=== PATIENT | female | born 1980 | race Caucasian/White ===

== ENCOUNTER 2016-10-23 18:51 | Emergency (ER) | payer MEDICAID ==
[~2016-10-23] VITALS: Ht 154.9 cm; Wt 64.5 kg
[2016-10-23 19:10] VITALS: BP 131/83
[2016-10-23] MEDS ORDERED: LIDOCAINE 1%, 20ML ONE (19:26)
[2016-10-23] MEDS ORDERED: LIDOCAINE 1%, 20ML INFIL ONE (19:30)
== END 2016-10-23 21:08 | disposition home or self-care (01) ==
LOC: ED 21:02
DX: L03.114 Cellulitis of left upper limb (principal); Z88.8 Allergy status to other drugs, medicaments and biological substances; F17.210 Nicotine dependence, cigarettes, uncomplicated
CPT/HCPCS: 10060; 99283; J3490

== ENCOUNTER 2016-10-25 20:45 | Emergency (ER) | payer SELFPAY ==
[~2016-10-25] VITALS: Ht 154.9 cm; Wt 64.4 kg
[2016-10-25 20:49] VITALS: BP 121/81
[2016-10-25] MEDS ORDERED: HYDROcodone/APAP 5/325 TABLET PO ONE (21:30)
[2016-10-25] MEDS ORDERED: KETOROLAC 30 MG/1 ML IM ONE (21:30)
[2016-10-25] MEDS ORDERED: LIDOCAINE 1%, 10ML INFIL ONE (21:30)
[2016-10-25] MEDS ORDERED: KETOROLAC 30 MG/1 ML ONE (21:31)
[2016-10-25] MEDS ORDERED: HYDROcodone/APAP 5/325 TABLET ONE (21:31)
[2016-10-25] MEDS ORDERED: LIDOCAINE 1%, 20ML ONE (21:32)
== END 2016-10-25 22:35 | disposition home or self-care (01) ==
LOC: ED 22:20
DX: L02.412 Cutaneous abscess of left axilla (principal)
CPT/HCPCS: 96372; 99283; J1885

== ENCOUNTER 2016-10-27 21:56 | Emergency (ER) | payer SELFPAY ==
[~2016-10-27] VITALS: Ht 154.9 cm; Wt 64.8 kg
[2016-10-27 22:00] VITALS: BP 136/90
== END 2016-10-27 23:27 | disposition home or self-care (01) ==
LOC: ED 23:15
DX: L02.412 Cutaneous abscess of left axilla (principal)
CPT/HCPCS: 99281

== ENCOUNTER 2017-02-25 11:57 | Emergency (ER) | payer OTHER ==
[~2017-02-25] VITALS: Ht 154.9 cm; Wt 64.6 kg
[2017-02-25 11:58] VITALS: BP 115/77
[2017-02-25] MEDS ORDERED: LIDOCAINE 1%, 20ML ONE (12:15)
[2017-02-25] MEDS ORDERED: LIDOCAINE 1%, 20ML SQ ONE (12:30)
== END 2017-02-25 12:47 | disposition home or self-care (01) ==
LOC: ED 12:41
DX: L02.411 Cutaneous abscess of right axilla (principal)
CPT/HCPCS: 10060

== ENCOUNTER 2017-03-02 01:38 | Emergency (ER) | payer SELFPAY ==
[~2017-03-02] VITALS: Ht 154.9 cm; Wt 64.7 kg
[2017-03-02 01:40] VITALS: BP 132/90
[2017-03-02] MEDS ORDERED: LIDOCAINE 1%, 20ML ONE (02:17)
[2017-03-02] MEDS ORDERED: LIDOCAINE 1%, 20ML INFIL ONE (02:30)
== END 2017-03-02 03:18 | disposition home or self-care (01) ==
LOC: ED 02:05
DX: L02.412 Cutaneous abscess of left axilla (principal)
CPT/HCPCS: 10061

== ENCOUNTER 2017-04-07 17:22 | Emergency (ER) | payer OTHER ==
[~2017-04-07] VITALS: Ht 157.5 cm; Wt 62.5 kg
[2017-04-07 17:33] VITALS: BP 130/72
[2017-04-07] MEDS ORDERED: HYDROcodone/APAP 5/325 TABLET PO STA (18:39)
[2017-04-07] MEDS ORDERED: HYDROcodone/APAP 5/325 TABLET ONE (18:41)
[2017-04-07] MEDS ORDERED: HYDROcodone/APAP 5/325 TABLET PO ONE (19:00)
== END 2017-04-07 19:14 | disposition home or self-care (01) ==
LOC: ED 19:00
DX: S63.637A Sprain of interphalangeal joint of left little finger, initial encounter (principal); S63.635A Sprain of interphalangeal joint of left ring finger, initial encounter; X58.XXXA Exposure to other specified factors, initial encounter; Y93.89 Activity, other specified; Y92.89 Other specified places as the place of occurrence of the external cause; Y99.8 Other external cause status; Z88.1 Allergy status to other antibiotic agents
CPT/HCPCS: 29125

== ENCOUNTER 2017-12-11 23:03 | Emergency (ER) | payer SELFPAY ==
[~2017-12-11] VITALS: Ht 154.9 cm; Wt 63.9 kg
[2017-12-11 23:05] VITALS: BP 109/70
[2017-12-11] MEDS ORDERED: TRIAMCINOLONE ACETONIDE 40 MG/ML, 1ML IM STA (23:41)
== END 2017-12-12 01:05 | disposition home or self-care (01) ==
LOC: ED 23:58
DX: L40.0 Psoriasis vulgaris (principal)
CPT/HCPCS: 96372; 99283; J3301

== ENCOUNTER 2018-06-20 15:21 | Emergency (ER) | payer MEDICAID ==
[~2018-06-20] VITALS: Ht 154.9 cm; Wt 67.6 kg
[2018-06-20 15:23] VITALS: BP 141/85
[2018-06-20] MEDS ORDERED: MORPHINE SULFATE 4 MG/ML, 1ML IVPush PRN (15:30)
[2018-06-20] MEDS ORDERED: ONDANSETRON 2MG/ML, 2ML IVPush ONE (15:30)
[2018-06-20] MEDS ORDERED: SODIUM CHLORIDE FLUSH 10ML SYR IVF ONE (15:30)
--- NOTE | 2018-06-20 15:41 | NUR ---
PT ARRIVES TO ED WITH C/O OF ABD PAIN. PT EPROTS SHE HAD A MASS DIGNOSED AT [facility]. PT REPROTS SHE WAS SENT TO FOLLOW UP WITH OBGYN BUT CANNOT GET AN APPOINTMENT UNTIL THE . PT RPEORTS THE BREATHING IS CAUSING HER ABD PAIN AND DIFFICULTY BREATHING. BECK
--- NOTE | 2018-06-20 15:57 | NUR ---
AT THIS TIME WOULD LIKE TO HOLD OFF ON PIV AND IV MEDS.
[2018-06-20 16:13] LABS: ALANINE AMINOTRANSFERASE 20 U/L (12-78); ALBUMIN 3.8 g/dL (3.4-5.0); ANION GAP 9 mmol/L (5-15); CALCIUM 8.5 mg/dL (8.5-10.1); CHLORIDE 108 mmol/L (98-107); CREATININE 0.79 mg/dL (0.55-1.02)
[2018-06-20 16:17] LABS: ALKALINE PHOSPHATASE 57 U/L (45-117); BILIRUBIN,TOTAL 0.3 mg/dL (0.2-1.0); TOTAL PROTEIN 7.7 g/dL (6.4-8.2)
[2018-06-20 16:29] LABS: BASOPHILS # (AUTO) 0.03 x10^3/uL (0-0.1); BASOPHILS % (AUTO) 1 % (0-1); EOSINOPHILS # (AUTO) 0.17 x10^3/uL (0-0.4); EOSINOPHILS % (AUTO) 5 % (1-7); LYMPHOCYTES # (AUTO) 1.59 x10^3/uL (1-3.4); LYMPHOCYTES % (AUTO) 41 % (22-44); MD NO; MEAN CORPUSCULAR HEMOGLOBIN 25.3 pg (27.0-34.8); MEAN CORPUSCULAR VOLUME 76.9 fL (80-100); MEAN PLATELET VOLUME 8.4 fL (7.4-10.4); MONOCYTES # (AUTO) 0.28 x10^3/uL (0.2-0.8); MONOCYTES % (AUTO) 7 % (2-9); NEUTROPHILS # (AUTO) 1.76 x10^3/uL (1.8-6.8); NEUTROPHILS % (AUTO) 46 % (42-75); PLATELET COUNT 358 x10^3/uL (130-400); RED BLOOD COUNT 3.95 x10^6/uL (3.82-5.3); RED CELL DISTRIBUTION WIDTH 17.8 % (9.6-15.2)
[2018-06-20 16:36] LABS: MICROSCOPIC AUTO
[2018-06-20 16:39] LABS: CULTURE INDICATED? NO
--- NOTE | 2018-06-20 17:28 | NUR ---
PT BACK FROM US, MD TO BEDSIDE.
--- NOTE | 2018-06-20 17:34 | NUR ---
Patient/Caregiver given discharge instructions and they have confirmed that they understand the instructions. Patient ambulatory with steady gait.
== END 2018-06-20 17:54 | disposition home or self-care (01) ==
LOC: ED 16:42
DX: R19.07 Generalized intra-abdominal and pelvic swelling, mass and lump (principal); D50.0 Iron deficiency anemia secondary to blood loss (chronic); F17.200 Nicotine dependence, unspecified, uncomplicated
CPT/HCPCS: 36415; 76830; 80053; 81001; 84703; 85025; 86304; 99284

== ENCOUNTER 2018-06-29 14:29 | Outpatient (CLI) | payer MEDICAID ==
[2018-06-29 15:38] LABS: BASOPHILS # (AUTO) 0.04 x10^3/uL (0-0.1); BASOPHILS % (AUTO) 1 % (0-1); EOSINOPHILS # (AUTO) 0.18 x10^3/uL (0-0.4); EOSINOPHILS % (AUTO) 4 % (1-7); LYMPHOCYTES # (AUTO) 1.53 x10^3/uL (1-3.4); LYMPHOCYTES % (AUTO) 34 % (22-44); MD NO; MEAN CORPUSCULAR HEMOGLOBIN 24.6 pg (27.0-34.8); MEAN CORPUSCULAR HGB CONC 32.3 g/dL (32.4-35.8); MEAN CORPUSCULAR VOLUME 76.3 fL (80-100); MEAN PLATELET VOLUME 8.1 fL (7.4-10.4); MONOCYTES # (AUTO) 0.31 x10^3/uL (0.2-0.8); MONOCYTES % (AUTO) 7 % (2-9); NEUTROPHILS # (AUTO) 2.38 x10^3/uL (1.8-6.8); NEUTROPHILS % (AUTO) 54 % (42-75); PLATELET COUNT 350 x10^3/uL (130-400); RED BLOOD COUNT 4.19 x10^6/uL (3.82-5.3); RED CELL DISTRIBUTION WIDTH 17.8 % (9.6-15.2)
[2018-06-29] MEDS ORDERED: IBUP-1623 PO (16:07)
[2018-06-29 16:11] LABS: INTERNATIONAL NORMALIZED RATIO 1.07 (0.93-1.1); PROTHROMBIN TIME 11.3 Seconds (9.6-11.5)
[2018-06-29 19:23] LABS: ALANINE AMINOTRANSFERASE 18 U/L (12-78); ALBUMIN 3.6 g/dL (3.4-5.0); ANION GAP 7 mmol/L (5-15); CALCIUM 8.6 mg/dL (8.5-10.1); CHLORIDE 108 mmol/L (98-107); CREATININE 0.65 mg/dL (0.55-1.02)
[2018-06-29 19:25] LABS: ALKALINE PHOSPHATASE 56 U/L (45-117); BILIRUBIN,TOTAL 0.3 mg/dL (0.2-1.0); TOTAL PROTEIN 7.2 g/dL (6.4-8.2)
== END 2018-06-29 23:59 | disposition home or self-care (01) ==
LOC: STAR 14:29
PROVIDERS: ATTEND Specialist
DX: Z01.818 Encounter for other preprocedural examination (principal)
CPT/HCPCS: 36415; 70450; 71046; 80053; 82105; 83615; 85025; 85610; 85730; 93005

== ENCOUNTER 2018-07-03 07:35 | Inpatient (IN) | payer MEDICAID ==
[~2018-07-03] VITALS: Ht 156.2 cm; Wt 66.6 kg
[~2018-07-03 07:35] MED LIST: IBUP-1623 PO
[2018-07-03 08:37] LABS: HCG UR SG 1.019 (1.003-1.030)
[2018-07-03] MEDS ORDERED: LACTATED RINGERS 1,000 ML IV SCH (08:39)
[2018-07-03] MEDS ORDERED: LIDOCAINE-MPF 1%, 2ML INFIL ONE (09:00)
[2018-07-03] MEDS ORDERED: FENTANYL PF 250 MCG/5ML ONE ×2 (09:25→10:54)
[2018-07-03] MEDS ORDERED: MIDAZOLAM 1 MG/ML, 2ML ONE ×2 (09:25→12:30)
[2018-07-03] MEDS ORDERED: PROPOFOL 10 MG/ML, 20ML ONE (09:28)
[2018-07-03] MEDS ORDERED: SUCCINYLCHOLINE 20 MG/ML, 10ML ONE ×3 (09:28)
[2018-07-03] MEDS ORDERED: ROCURONIUM 10MG/ML,5ML ONE (09:28)
[2018-07-03] MEDS ORDERED: KETOROLAC 30 MG/1 ML ONE (10:09)
[2018-07-03] MEDS ORDERED: ONDANSETRON 2MG/ML, 2ML ONE (10:09)
[2018-07-03] MEDS ORDERED: DEXAMETHASONE 4 MG/ML, 1ML ONE (10:09)
[2018-07-03] MEDS ORDERED: GLYCOPYRROLATE 0.2MG/1ML, 5ML ONE (10:09)
[2018-07-03] MEDS ORDERED: NEOSTIGMINE 1 MG/ML, 10ML ONE (10:09)
[2018-07-03] MEDS ORDERED: CEFOTETAN 2 GM ONE (10:09)
[2018-07-03] MEDS ORDERED: ROPIvacaine/PF 0.2%, 20 ML ONE ×2 (10:54)
[2018-07-03] MEDS ORDERED: MEPERIDINE/PF 25MG/0.5ML IVPush PRN (11:00)
[2018-07-03] MEDS ORDERED: MORPHINE SULFATE 4 MG/ML, 1ML IVPush PRN (11:00)
[2018-07-03] MEDS ORDERED: OXYcodone 5 MG/5 ML ORAL.SOL UDC PO PRN (11:00)
[2018-07-03] MEDS ORDERED: ALBUTEROL SULFATE 2.5 MG/3 ML NPPB PRN (11:00)
[2018-07-03] MEDS ORDERED: hydrALAzine 20 MG/ML, 1ML IV PRN (11:00)
[2018-07-03] MEDS ORDERED: DIAZEPAM 5 MG/ML, 2ML IVPush PRN (11:00)
[2018-07-03] MEDS ORDERED: PROMETHAZINE 25 MG/ML, 1ML IV PRN (11:00)
[2018-07-03] MEDS ORDERED: ONDANSETRON ODT 8 MG PO PRN (11:00)
[2018-07-03] MEDS ORDERED: PROMETHAZINE 12.5 MG SUPP PR PRN (11:00)
[2018-07-03] MEDS ORDERED: ACETAMINOPHEN 325 MG TABLET PO PRN (11:00)
[2018-07-03] MEDS ORDERED: HALOPERIDOL 5 MG/ML IV PRN (11:00)
[2018-07-03] MEDS ORDERED: LABETALOL 5MG/ML, 20ML IV PRN (11:00)
[2018-07-03] MEDS ORDERED: ONDANSETRON 2MG/ML, 2ML IV PRN (11:00)
[2018-07-03] MEDS ORDERED: HYDROmorphone 2 MG/ML, 1ML IVPush PRN (11:00)
[2018-07-03] MEDS ORDERED: EPHEDRINE 50 MG/ML, 1ML IVPush PRN (11:00)
[2018-07-03] MEDS ORDERED: MIDAZOLAM 1 MG/ML, 2ML IV PRN (11:00)
[2018-07-03] MEDS ORDERED: OXYcodone 5 MG/5 ML ORAL.SOL UDC ONE ×2 (12:24→12:30)
[2018-07-03] MEDS ORDERED: FENTANYL PF 100 MCG/2ML ONE (12:24)
[2018-07-03] MEDS: FENTANYL PF 100 MCG/2ML IV PRN ×2 (12:26→13:06)
[2018-07-03] MEDS ORDERED: ONDANSETRON 2MG/ML, 2ML IVPush PRN (12:30)
[2018-07-03] MEDS: KETOROLAC 30 MG/1 ML IV SCH ×2 (14:45→22:13)
[2018-07-03] MEDS: POTASSIUM CHLORIDE 20 MEQ in D5%-0.45% NACL 1,000 ML IV SCH (17:14)
[2018-07-03 19:39] VITALS: BP 132/76
[2018-07-03 23:41] VITALS: BP 111/74
[2018-07-04 03:16] VITALS: BP 99/64
[2018-07-04] MEDS: POTASSIUM CHLORIDE 20 MEQ in D5%-0.45% NACL 1,000 ML IV SCH ×2 (03:39→14:32)
[2018-07-04 05:55] LABS: BASOPHILS % (AUTO) 0 % (0-1); EOSINOPHILS # (AUTO) 0.01 x10^3/uL (0-0.4); EOSINOPHILS % (AUTO) 0 % (1-7); LYMPHOCYTES # (AUTO) 1.15 x10^3/uL (1-3.4); LYMPHOCYTES % (AUTO) 15 % (22-44); MD NO; MEAN CORPUSCULAR HEMOGLOBIN 24.8 pg (27.0-34.8); MEAN CORPUSCULAR HGB CONC 32.5 g/dL (32.4-35.8); MEAN CORPUSCULAR VOLUME 76.3 fL (80-100); MEAN PLATELET VOLUME 8.3 fL (7.4-10.4); MONOCYTES # (AUTO) 0.63 x10^3/uL (0.2-0.8); MONOCYTES % (AUTO) 8 % (2-9); NEUTROPHILS # (AUTO) 5.68 x10^3/uL (1.8-6.8); NEUTROPHILS % (AUTO) 76 % (42-75); PLATELET COUNT 280 x10^3/uL (130-400); RED BLOOD COUNT 3.51 x10^6/uL (3.82-5.3); RED CELL DISTRIBUTION WIDTH 17.4 % (9.6-15.2)
[2018-07-04 06:11] LABS: CALCIUM 8.1 mg/dL (8.5-10.1); CHLORIDE 106 mmol/L (98-107)
[2018-07-04 06:14] LABS: ALBUMIN 3.1 g/dL (3.4-5.0); ANION GAP 5 mmol/L (5-15); CREATININE 0.63 mg/dL (0.55-1.02)
[2018-07-04] MEDS: KETOROLAC 30 MG/1 ML IV SCH ×3 (06:21→23:04)
[2018-07-04 07:27] VITALS: BP 98/66
[2018-07-04 12:32] VITALS: BP 110/67
[2018-07-04] MEDS: NICOTINE 21 MG/24 HR PATCH.TD24 TD SCH (12:52)
[2018-07-04 20:31] VITALS: BP 114/75
[2018-07-05] MEDS: POTASSIUM CHLORIDE 20 MEQ in D5%-0.45% NACL 1,000 ML IV SCH ×3 (00:18→21:09)
[2018-07-05 02:36] VITALS: BP_SYST 109; BP_SYST 113; BP_DIAS 71; BP_DIAS 74
[2018-07-05] MEDS: KETOROLAC 30 MG/1 ML IV SCH ×3 (05:48→22:01)
[2018-07-05 08:22] VITALS: BP 124/81
[2018-07-05] MEDS: NICOTINE 21 MG/24 HR PATCH.TD24 TD SCH (13:33)
[2018-07-05 14:17] VITALS: BP 124/81
[2018-07-05 19:22] VITALS: BP 119/80
[2018-07-06 00:25] VITALS: BP 110/73
[2018-07-06] MEDS: KETOROLAC 30 MG/1 ML IV SCH (06:15)
[2018-07-06] MEDS: POTASSIUM CHLORIDE 20 MEQ in D5%-0.45% NACL 1,000 ML IV SCH (07:05)
[2018-07-06 07:42] VITALS: BP 115/74
[2018-07-06] MEDS ORDERED: ONDA4TAB7 PO (08:55)
[2018-07-06] MEDS ORDERED: OXYC-306 PO (08:55)
[2018-07-06] MEDS ORDERED: FERR324T5 PO (08:56)
== END 2018-07-06 11:35 | disposition home or self-care (01) | DRG 743 ==
LOC: ORIP 07:35 → 4NOR 13:55 → DCLOUNGE 07-06 11:24
PROVIDERS: ADMIT Specialist; ATTEND Specialist
PROC: 0UT70ZZ Resection of Bilateral Fallopian Tubes, Open Approach (ICD-10-PCS; 2018-07-03)
PROC: 0UT90ZZ Resection of Uterus, Open Approach (ICD-10-PCS; principal; 2018-07-03 09:00)
DX: D25.9 Leiomyoma of uterus, unspecified (principal); D64.9 Anemia, unspecified; Z88.8 Allergy status to other drugs, medicaments and biological substances; Z87.891 Personal history of nicotine dependence; J44.9 Chronic obstructive pulmonary disease, unspecified
CPT/HCPCS: 36415; J3490; 80048; 81025; 82040; 85025; 86850; 86900; 86923; 88307; 88331; G0378; J1100; J1885; J2250; J2270; J2405; J2704; J2710; J2795; J3010; J3480; J0330; J7120

== ENCOUNTER 2019-08-13 20:56 | Emergency (ER) | payer MEDICAID ==
[~2019-08-13] VITALS: Ht 162.6 cm; Wt 66.9 kg
[~2019-08-13 20:56] MED LIST changes: +FERR324T5 PO; +ONDA4TAB7 PO; +OXYC-306 PO
[2019-08-13 21:31] VITALS: BP 127/91
[2019-08-13] MEDS ORDERED: KETOROLAC 30 MG/1 ML IM ONE (22:00)
== END 2019-08-13 22:22 | disposition home or self-care (01) ==
LOC: ED 21:30
DX: H65.02 Acute serous otitis media, left ear (principal)
CPT/HCPCS: 99283

== ENCOUNTER 2019-08-16 21:21 | Emergency (ER) | payer MEDICAID ==
[~2019-08-16] VITALS: Ht 154.9 cm; Wt 65.2 kg
[2019-08-16 21:24] VITALS: BP 129/71
[2019-08-16] MEDS ORDERED: IBUPROFEN 600 MG TABLET ONE (22:28)
[2019-08-16] MEDS ORDERED: IBUPROFEN 200 MG TABLET PO ONE (22:30)
== END 2019-08-16 22:47 | disposition home or self-care (01) ==
LOC: ED 21:44
DX: H92.02 Otalgia, left ear (principal)
CPT/HCPCS: 99282

== ENCOUNTER 2019-10-14 17:26 | Emergency (ER) | payer MEDICAID ==
[~2019-10-14] VITALS: Ht 157.5 cm; Wt 52.0 kg
[2019-10-14 17:30] VITALS: BP 128/81
[2019-10-14 18:11] LABS: MICROSCOPIC INDICATED
[2019-10-14 18:14] LABS: CULTURE INDICATED? YES
--- NOTE | 2019-10-14 18:40 | NUR ---
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
== END 2019-10-14 19:07 | disposition home or self-care (01) ==
LOC: ED 18:49
DX: N30.01 Acute cystitis with hematuria (principal)
CPT/HCPCS: 81001; 87077; 87086; 87186; 99283

== ENCOUNTER 2019-10-17 17:19 | Emergency (ER) | payer MEDICAID ==
[~2019-10-17] VITALS: Ht 154.9 cm; Wt 64.0 kg
--- NOTE | 2019-10-17 17:28 | NUR ---
THIS IS A 39 YO F BIB EMS W/ C/O LLQ AND LT SIDED ABD PAIN 03/29 THAT STARTED THIS MORNING. PT WAS SEEN 2 DAYS AGO FOR UTI, TAKING CIPRO. LAST BM TODAY. DENIES VOMITING. PT REPORTS USING HEROIN AND METH AT 10:30 THIS MORNING. 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 PT TACHYCARDIC, OTHER VS WDL. PT RESTING ON GURNEY W/ CALL LIGHT IN REACH, SIDE RAILS UPX2. AWAITING ED EVAL. DENIES FURTHER NEEDS AT THIS TIME.
--- NOTE | 2019-10-17 17:37 | NUR ---
PT AMBULATED TO THE BR W/ A STEADY GAIT.
[2019-10-17 17:52] LABS: MICROSCOPIC AUTO
--- NOTE | 2019-10-17 17:52 | NUR ---
PT CRYING OUT IN PAIN, MAGED OQUENDO NOTIFIED AND ASKED TO COME SEE PT.
[2019-10-17 17:53] LABS: CULTURE INDICATED? YES
--- NOTE | 2019-10-17 17:58 | NUR ---
MAGED OQUENDO IN ROOM.
[2019-10-17] MEDS ORDERED: KETOROLAC 30 MG/1 ML IVPush ONE (18:00)
[2019-10-17] MEDS ORDERED: KETOROLAC 30 MG/1 ML ONE (18:00)
--- NOTE | 2019-10-17 18:04 | NUR ---
PT MEDICATED PER EMAR.
[2019-10-17 18:11] LABS: BASOPHILS # (AUTO) 0.05 x10^3/uL (0-0.1); BASOPHILS % (AUTO) 1 % (0-1); EOSINOPHILS # (AUTO) 0.22 x10^3/uL (0-0.4); EOSINOPHILS % (AUTO) 3 % (1-7); LYMPHOCYTES % (AUTO) 45 % (22-44); MD NO; MEAN CORPUSCULAR HEMOGLOBIN 31.1 pg (27.0-34.8); MEAN CORPUSCULAR VOLUME 91.3 fL (80-100); MEAN PLATELET VOLUME 8.3 fL (7.4-10.4); MONOCYTES # (AUTO) 0.32 x10^3/uL (0.2-0.8); MONOCYTES % (AUTO) 5 % (2-9); NEUTROPHILS # (AUTO) 2.97 x10^3/uL (1.8-6.8); NEUTROPHILS % (AUTO) 46 % (42-75); PLATELET COUNT 332 x10^3/uL (130-400); RED BLOOD COUNT 4.64 x10^6/uL (3.82-5.3); RED CELL DISTRIBUTION WIDTH 12.4 % (9.6-15.2)
[2019-10-17 18:20] LABS: ALANINE AMINOTRANSFERASE 20 U/L (12-78); ALBUMIN 3.4 g/dL (3.4-5.0); ANION GAP 8 mmol/L (5-15); CALCIUM 9.7 mg/dL (8.5-10.1); CHLORIDE 108 mmol/L (98-107); CREATININE 1.01 mg/dL (0.55-1.02)
[2019-10-17 18:25] LABS: ALKALINE PHOSPHATASE 76 U/L (45-117); BILIRUBIN,TOTAL 0.3 mg/dL (0.2-1.0); TOTAL PROTEIN 7.2 g/dL (6.4-8.2)
--- NOTE | 2019-10-17 18:30 | NUR ---
PT RESTING MUCH MORE COMFORTABLE AFTER PAIN MEDS.
[2019-10-17] MEDS ORDERED: HYDROmorphone 1 MG/ML, 1ML INJ ONE (19:03)
--- NOTE | 2019-10-17 19:06 | NUR ---
PT MEDICATED PER EMAR. AWAITING CT.
--- NOTE | 2019-10-17 19:07 | NUR ---
TELEPHONE CALL TO CT, THAT PT HAS BEEN MEDICATED AND READY FOR SCAN.
[2019-10-17] MEDS ORDERED: HYDROmorphone 1 MG/ML, 1ML INJ IV ONE (19:30)
--- NOTE | 2019-10-17 19:48 | NUR ---
PT TO CT.
--- NOTE | 2019-10-17 20:02 | NUR ---
PT BACK FROM CT. RESTING ON [employer] W/ CALL LIGHT IN REACH. AWAITING RESULTS.
--- NOTE | 2019-10-17 20:06 | NUR ---
PT REPORTS RELIEF OF PAIN AFTER MEDS.
--- NOTE | 2019-10-17 20:53 | NUR ---
STRAIGHT CATH URINE SPECIMEN OBTAINED AND SENT TO LAB.
[2019-10-17 21:18] LABS: MICROSCOPIC INDICATED
[2019-10-17 21:19] LABS: CULTURE INDICATED? YES
[2019-10-17] MEDS ORDERED: CEFTRIAXONE PMX 1GM/50ML 50 ML IV ONE (22:00)
[2019-10-17] MEDS ORDERED: CEFTRIAXONE PMX 1GM/50ML 50 ML ONE (22:15)
[2019-10-17 22:20] VITALS: BP 126/74
--- NOTE | 2019-10-17 22:21 | NUR ---
TASK RN: CELSO INITIATED. NO BC PRIOR TO ADMIN PER ERP.
== END 2019-10-17 22:50 | disposition home or self-care (01) ==
LOC: ED 18:31
DX: N30.00 Acute cystitis without hematuria (principal); N20.0 Calculus of kidney; R10.9 Unspecified abdominal pain; M54.5 Low back pain; Z88.2 Allergy status to sulfonamides; Z88.1 Allergy status to other antibiotic agents; Z90.710 Acquired absence of both cervix and uterus
CPT/HCPCS: 36415; 74176; 80053; 81001; 84703; 85025; 87086; 96365; 96375; 99285; J0696; J1170; J1885

== ENCOUNTER 2020-02-08 10:36 | Emergency (ER) | payer MEDICAID ==
[~2020-02-08] VITALS: Ht 154.9 cm; Wt 64.7 kg
[2020-02-08 10:39] VITALS: BP 131/81
[2020-02-08] MEDS ORDERED: DEXAMETHASONE 4 MG TABLET ONE (11:10)
[2020-02-08] MEDS ORDERED: KETOROLAC 30 MG/1 ML ONE (11:10)
--- NOTE | 2020-02-08 11:16 | NUR ---
MEDS GIVEN PER ORDERS DRINKING FLUIDS EASILY
[2020-02-08] MEDS ORDERED: DEXAMETHASONE 4 MG TABLET PO ONE (12:00)
[2020-02-08] MEDS ORDERED: KETOROLAC 30 MG/1 ML IM ONE (12:00)
== END 2020-02-08 12:43 | disposition home or self-care (01) ==
LOC: ED 11:34
DX: J02.0 Streptococcal pharyngitis (principal); H92.09 Otalgia, unspecified ear; R09.81 Nasal congestion
CPT/HCPCS: 87880; 96372; 99283; J1885

== ENCOUNTER 2020-02-10 09:06 | Emergency (ER) | payer MEDICAID ==
[~2020-02-10] VITALS: Ht 157.5 cm; Wt 61.2 kg
[2020-02-10 09:19] VITALS: BP 116/74
--- NOTE | 2020-02-10 09:58 | NUR ---
MEDIC STUDENT IN TO START IV-PT REFUSES STATING "I'M NOT HAVING A STUDENT". THIS RN IN TO START IV. WITH NEEDLE INSERTION PT STATES "TAKE IT OUT, THAT'S NOT GOING TO WORK". PT INSISTS ON THIS RN REMOVING IV AND SAYS "YOU SHOULDN'T HAVE DONE THAT ARM, NOTHING WORKS ON THAT ARM". THIS RN STARTS IV ON L ARM AND PT AGAIN STATES "YOU ARE DONE, YOU ARE DONE" WITH INSERTION OF NEEDLE. FLASH OBTAINED AND PT ALLOWED IV PLACEMENT. UNABLE TO DRAW LABS AND IV INFILTRATE WITH FLUSH. PT THEN STATES "NO ONE ELSE IS POKING ME, YOU SUCK ASS, ALL OF YOU SUCK ASS". LAB AT [facility], PT ASKED IF OK FOR LAB TO DRAW. PT YELLS "NO, NOBODY IS POKING ME! 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 ERP NOTIFIED OF PT REFUSAL AND COMMENTS. ERP IN TO SPEAK WITH PT AND PT LEAVES ER.
[2020-02-10] MEDS ORDERED: KETOROLAC 30 MG/1 ML IVPush ONE (10:00)
[2020-02-10] MEDS ORDERED: SODIUM CHLORIDE 0.9% 1,000ML IVBOLUS ONE (10:00)
[2020-02-10] MEDS ORDERED: DEXAMETHASONE 4 MG/ML, 1ML IVPush ONE (10:00)
[2020-02-10] MEDS ORDERED: SODIUM CHLORIDE FLUSH 10ML SYR IVF ONE (10:00)
[2020-02-10] MEDS ORDERED: AMPICILLIN/SULBACTAM 3 GM in SODIUM CHLORIDE 0.9% 100 ML IV ONE (10:00)
== END 2020-02-10 10:12 | disposition home or self-care (01) ==
LOC: ED 09:50
DX: M54.2 Cervicalgia (principal); R22.0 Localized swelling, mass and lump, head; R51 Headache; F17.200 Nicotine dependence, unspecified, uncomplicated; Z90.710 Acquired absence of both cervix and uterus
CPT/HCPCS: 99281

== ENCOUNTER 2020-02-11 01:34 | Inpatient (IN) | payer MEDICAID ==
[~2020-02-11] VITALS: Ht 154.9 cm; Wt 66.0 kg
[2020-02-11] MEDS ORDERED: SODIUM CHLORIDE 0.9% 1,000 ML IV ONE (01:36)
--- NOTE | 2020-02-11 01:51 | NUR ---
PT. PROVIDED WITH [employer] WITH OK FROM DR. SHAFFER.
[2020-02-11] MEDS ORDERED: ONDANSETRON 2MG/ML, 2ML ONE (01:59)
[2020-02-11] MEDS ORDERED: MORPHINE SULFATE 4 MG/ML, 1ML ONE (01:59)
[2020-02-11] MEDS ORDERED: SODIUM CHLORIDE FLUSH 10ML SYR IVF ONE (02:00)
[2020-02-11] MEDS ORDERED: ONDANSETRON 2MG/ML, 2ML IVPush ONE (02:00)
[2020-02-11] MEDS ORDERED: MORPHINE SULFATE 4 MG/ML, 1ML IVPush PRN (02:00)
[2020-02-11 02:44] VITALS: BP 102/67
[2020-02-11 03:34] VITALS: BP 102/67
[2020-02-11] MEDS ORDERED: DOCUSATE 100 MG CAPSULE PO PRN (04:00)
[2020-02-11] MEDS ORDERED: ONDANSETRON 2MG/ML, 2ML IVPush PRN (04:00)
[2020-02-11] MEDS ORDERED: NICOTINE 14MG/24 HR PATCH.TD24 TD ONE (04:00)
[2020-02-11] MEDS ORDERED: hydrALAzine 20 MG/ML, 1ML IVPush PRN (04:00)
[2020-02-11] MEDS ORDERED: GUAIFENESIN/DM 200-20MG, 10ML UDC PO PRN (04:00)
[2020-02-11] MEDS ORDERED: KETOROLAC 30 MG/1 ML IV PRN (04:00)
[2020-02-11] MEDS ORDERED: ACETAMINOPHEN 325 MG TABLET PO PRN (04:00)
[2020-02-11] MEDS: AMPICILLIN/SULBACTAM 3 GM in SODIUM CHLORIDE 0.9% 100 ML IV SCH ×4 (04:42→23:14)
[2020-02-11 07:35] VITALS: BP 105/69
[2020-02-11 08:58] LABS: HCT (SEDRATE) 40.8 % (34.6-47.8)
[2020-02-11] MEDS: D5%-0.45% NACL 1,000 ML IV SCH ×2 (11:22→22:00)
[2020-02-11 13:48] VITALS: BP 102/68
[2020-02-11 19:25] VITALS: BP 114/73
[2020-02-12 01:44] VITALS: BP 105/61
[2020-02-12] MEDS: AMPICILLIN/SULBACTAM 3 GM in SODIUM CHLORIDE 0.9% 100 ML IV SCH (05:16)
[2020-02-12 08:50] VITALS: BP 120/81
[2020-02-12] MEDS: PIPERACILLIN/TAZO/PMX 3.375GM 50 ML IV SCH ×2 (09:45→15:16)
[2020-02-12] MEDS ORDERED: NICOTINE 14MG/24 HR PATCH.TD24 TD SCH (10:30)
[2020-02-12 14:12] VITALS: BP 100/63
== END 2020-02-12 17:01 | disposition left against medical advice (07) | DRG 153 ==
LOC: ED 01:59 → INTOOBSV 02:18 → OBSVTOIN 02:18 → EDIP 02:18 → 4NE 02:42 → INTOOBSV 11:51 → OBSVTOIN 11:51
PROVIDERS: ADMIT Hospitalist; ATTEND Internal Medicine Infectious Disease
DX: J03.90 Acute tonsillitis, unspecified (principal); F17.210 Nicotine dependence, cigarettes, uncomplicated; Z53.29 Procedure and treatment not carried out because of patient's decision for other reasons; L04.0 Acute lymphadenitis of face, head and neck; Z83.3 Family history of diabetes mellitus; Z87.442 Personal history of urinary calculi; Z90.710 Acquired absence of both cervix and uterus
CPT/HCPCS: 36415; 85651; 86140; 87040; 87081; 87880; 96374; 96375; J0295; J2405; J2543; G0378; J2270; J7030

== ENCOUNTER 2020-02-13 12:27 | Inpatient (IN) | payer MEDICAID ==
[~2020-02-13] VITALS: Ht 154.9 cm; Wt 63.0 kg
--- NOTE | 2020-02-13 12:56 | NUR ---
PT ADMITTED OVERNIGHT ON FOR IV ANTIBIOTICS D/T CELLULITIS OF NECK FOLLOWING "STREP THROAT". PT STATES SHE CHECKED OUT AMA D/T PROBLEMS AT HOME WITH PETS UNCARED FOR. NO SCRIPTS GIVEN WHEN SHE LEFT HOSPITAL. PT REPORTS NO CHANGE IN SWELLING, SLIGHT DIFFICULTY SWALLOWING D/T SWELLING, AND INTERMITTENT NAUSEA TODAY. PT STATES SHE HAS FOUND SOMEONE TO PROVIDE CARE FOR CATS AND IS PREPARED TO FINISH HOSPITAL TREATMENT AT THIS TIME. PT UP/AMBULATED TO . PT PLACED ON BP CUFF, PULSE OX. WARM BLANKET PROVIDED, CALL LIGHT WITHIN REACH.
--- NOTE | 2020-02-13 13:40 | NUR ---
IV ESTABLISHED. LABS DRAWN
[2020-02-13 14:04] LABS: BASOPHILS # (AUTO) 0.05 x10^3/uL (0-0.1); BASOPHILS % (AUTO) 1 % (0-1); EOSINOPHILS # (AUTO) 0.33 x10^3/uL (0-0.4); EOSINOPHILS % (AUTO) 4 % (1-7); LYMPHOCYTES # (AUTO) 2.96 x10^3/uL (1-3.4); LYMPHOCYTES % (AUTO) 31 % (22-44); MD NO; MEAN CORPUSCULAR HEMOGLOBIN 30.4 pg (27.0-34.8); MEAN CORPUSCULAR HGB CONC 33.1 g/dL (32.4-35.8); MEAN CORPUSCULAR VOLUME 92.1 fL (80-100); MEAN PLATELET VOLUME 7.2 fL (7.4-10.4); MONOCYTES # (AUTO) 0.49 x10^3/uL (0.2-0.8); MONOCYTES % (AUTO) 5 % (2-9); NEUTROPHILS # (AUTO) 5.71 x10^3/uL (1.8-6.8); NEUTROPHILS % (AUTO) 60 % (42-75); PLATELET COUNT 439 x10^3/uL (130-400); RED BLOOD COUNT 4.83 x10^6/uL (3.82-5.3)
[2020-02-13 14:15] LABS: ANION GAP 5 mmol/L (5-15); CALCIUM 9.1 mg/dL (8.5-10.1); CHLORIDE 103 mmol/L (98-107)
[2020-02-13 14:16] LABS: CREATININE 0.77 mg/dL (0.55-1.02)
[2020-02-13] MEDS ORDERED: SODIUM CHLORIDE FLUSH 10ML SYR IVF ONE (14:30)
--- NOTE | 2020-02-13 15:37 | NUR ---
PT TO CT
--- NOTE | 2020-02-13 15:53 | NUR ---
PT BACK FROM CT. MD AT BEDSIDE DISCUSSING POC FOR POSSIBLE DC
[2020-02-13] MEDS ORDERED: OMNIPAQUE 350 MG/ML, 100ML BOTTLE ONE (15:54)
[2020-02-13] MEDS ORDERED: AMPICILLIN/SULBACTAM 3 GM in SODIUM CHLORIDE 0.9% 100 ML IV ONE (17:00)
--- NOTE | 2020-02-13 17:09 | NUR ---
PLAN TO ADMIT. ABX INFUSING.
[2020-02-13] MEDS ORDERED: LIDOCAINE 1%-EPI 1:100K, 20ML ONE (17:16)
[2020-02-13] MEDS ORDERED: ONDANSETRON 2MG/ML, 2ML IVPush PRN (17:30)
[2020-02-13] MEDS ORDERED: DOCUSATE 100 MG CAPSULE PO PRN (17:30)
[2020-02-13] MEDS ORDERED: HYDROcodone/APAP 5/325 TABLET PO PRN (17:30)
[2020-02-13] MEDS ORDERED: PHENOL THROAT SPRAY BOTTLE MM PRN (17:30)
[2020-02-13] MEDS ORDERED: ACETAMINOPHEN 325 MG TABLET PO PRN (17:30)
[2020-02-13] MEDS ORDERED: POLYETHYLENE GLYCOL 17 GM PACKET PO PRN (17:30)
[2020-02-13] MEDS ORDERED: ONDANSETRON ODT 4 MG PO PRN (17:30)
[2020-02-13] MEDS ORDERED: ENALAPRILAT 1.25 MG/ML, 2ML IVPush PRN (17:30)
[2020-02-13] MEDS ORDERED: LABETALOL 5MG/ML, 20ML IVPush PRN (17:30)
[2020-02-13] MEDS ORDERED: NICOTINE 14MG/24 HR PATCH.TD24 TD ONE (17:30)
[2020-02-13] MEDS ORDERED: BISACODYL 10 MG SUPP PR PRN (17:30)
--- NOTE | 2020-02-13 17:30 | NUR ---
ENT AT BEDSIDE
--- NOTE | 2020-02-13 18:05 | NUR ---
REPORT TO [facility]. PT READY FOR TRANSFER
[2020-02-13 18:19] VITALS: BP 149/94
[2020-02-13] MEDS: morphine SULFATE 10 MG/ML, 1ML IVPush PRN (18:48)
[2020-02-13] MEDS: LACTATED RINGERS 1,000 ML IV SCH (19:54)
[2020-02-13 19:56] VITALS: BP 123/86
[2020-02-13] MEDS: PIPERACILLIN/TAZO/PMX 3.375GM 50 ML IV SCH (20:11)
[2020-02-14 01:00] VITALS: BP 122/84
[2020-02-14] MEDS: PIPERACILLIN/TAZO/PMX 3.375GM 50 ML IV SCH ×3 (02:04→18:43)
[2020-02-14] MEDS: KETOROLAC 30 MG/1 ML IV PRN ×2 (03:36→20:53)
[2020-02-14 05:11] LABS: BASOPHILS # (AUTO) 0.05 x10^3/uL (0-0.1); BASOPHILS % (AUTO) 1 % (0-1); EOSINOPHILS # (AUTO) 0.32 x10^3/uL (0-0.4); EOSINOPHILS % (AUTO) 5 % (1-7); LYMPHOCYTES # (AUTO) 2.84 x10^3/uL (1-3.4); LYMPHOCYTES % (AUTO) 39 % (22-44); MD NO; MEAN CORPUSCULAR HEMOGLOBIN 30.5 pg (27.0-34.8); MEAN CORPUSCULAR HGB CONC 33.3 g/dL (32.4-35.8); MEAN CORPUSCULAR VOLUME 91.5 fL (80-100); MEAN PLATELET VOLUME 7.3 fL (7.4-10.4); MONOCYTES # (AUTO) 0.44 x10^3/uL (0.2-0.8); MONOCYTES % (AUTO) 6 % (2-9); NEUTROPHILS # (AUTO) 3.55 x10^3/uL (1.8-6.8); NEUTROPHILS % (AUTO) 49 % (42-75); PLATELET COUNT 395 x10^3/uL (130-400); RED BLOOD COUNT 4.71 x10^6/uL (3.82-5.3); RED CELL DISTRIBUTION WIDTH 11.8 % (9.6-15.2)
[2020-02-14 05:19] LABS: ANION GAP 6 mmol/L (5-15); CHLORIDE 105 mmol/L (98-107)
[2020-02-14 05:20] LABS: CREATININE 0.82 mg/dL (0.55-1.02)
[2020-02-14 07:21] VITALS: BP 124/88
[2020-02-14] MEDS: morphine SULFATE 10 MG/ML, 1ML IVPush PRN ×2 (08:37→19:44)
[2020-02-14] MEDS ORDERED: CHLORHEXIDINE 15 ML UDC MM ONE ×2 (09:00→14:00)
[2020-02-14] MEDS ORDERED: LIDOCAINE 1%-EPI 1:100K, 20ML ONE (14:07)
[2020-02-14] MEDS ORDERED: MIDAZOLAM 1 MG/ML, 2ML ONE ×2 (14:28→14:44)
[2020-02-14] MEDS ORDERED: FENTANYL PF 100 MCG/2ML ONE ×3 (14:29→16:31)
[2020-02-14] MEDS ORDERED: PROPOFOL 50 ML ONE (14:43)
[2020-02-14] MEDS ORDERED: FENTANYL PF 250 MCG/5ML ONE (14:46)
[2020-02-14] MEDS ORDERED: ROCURONIUM 10MG/ML,5ML ONE (14:58)
[2020-02-14] MEDS ORDERED: ONDANSETRON 2MG/ML, 2ML ONE (14:58)
[2020-02-14] MEDS ORDERED: SUCCINYLCHOLINE 20 MG/ML, 10ML ONE (14:58)
[2020-02-14] MEDS ORDERED: LIDOCAINE 1%-EPI 1:100K, 20ML SQ ONE (15:10)
[2020-02-14] MEDS ORDERED: PROMETHAZINE 25 MG/ML, 1ML IVPush PRN (15:30)
[2020-02-14] MEDS ORDERED: ONDANSETRON 2MG/ML, 2ML IVPush PRN (15:30)
[2020-02-14] MEDS ORDERED: DIAZEPAM 5 MG/ML, 2ML IVPush PRN (15:30)
[2020-02-14] MEDS ORDERED: HYDROmorphone 1 MG/ML, 1ML INJ IVPush PRN (15:30)
[2020-02-14] MEDS ORDERED: EPHEDRINE 50 MG/ML, 1ML IVPush PRN (15:30)
[2020-02-14] MEDS ORDERED: LABETALOL 5MG/ML, 20ML IV PRN (15:30)
[2020-02-14] MEDS ORDERED: MEPERIDINE/PF 25MG/0.5ML IVPush PRN (15:30)
[2020-02-14] MEDS ORDERED: EPHEDRINE 50 MG/ML, 1ML IM PRN (15:30)
[2020-02-14] MEDS ORDERED: DIPHENHYDRAMINE 50 MG/ML, 1ML IVPush PRN (15:30)
[2020-02-14] MEDS ORDERED: OXYcodone 5 MG/5 ML ORAL.SOL UDC PO PRN (15:30)
[2020-02-14] MEDS: LACTATED RINGERS 1,000 ML IV SCH ×2 (15:32→21:27)
[2020-02-14] MEDS: FENTANYL PF 100 MCG/2ML IV PRN ×4 (16:16→16:41)
[2020-02-14] MEDS ORDERED: PROMETHAZINE 25 MG/ML, 1ML ONE (16:30)
[2020-02-14] MEDS ORDERED: KETOROLAC 30 MG/1 ML ONE (16:30)
[2020-02-14] MEDS ORDERED: DIAZEPAM 5 MG/ML, 2ML ONE (16:35)
[2020-02-14] MEDS ORDERED: OXYcodone 5 MG/5 ML ORAL.SOL UDC ONE (16:47)
[2020-02-14] MEDS ORDERED: KETOROLAC 30 MG/1 ML IVPush ONE (17:00)
[2020-02-14] MEDS ORDERED: MEPERIDINE/PF 25MG/ML,1ML ONE (17:02)
[2020-02-14] MEDS ORDERED: ONDANSETRON 2MG/ML, 2ML IV PRN (18:30)
[2020-02-14] MEDS ORDERED: KETOROLAC 30 MG/1 ML IV PRN (18:30)
[2020-02-14 19:38] VITALS: BP 114/75
[2020-02-14] MEDS: POTASSIUM CHLORIDE 20 MEQ in D5%-0.45% NACL 1,000 ML IV SCH (20:53)
[2020-02-15 00:24] VITALS: BP 117/76
[2020-02-15] MEDS: PIPERACILLIN/TAZO/PMX 3.375GM 50 ML IV SCH ×4 (01:16→18:40)
[2020-02-15] MEDS: OXYcodone/APAP 5/325MG TABLET PO PRN ×3 (01:16→19:29)
[2020-02-15] MEDS: KETOROLAC 30 MG/1 ML IV PRN ×2 (03:43→10:41)
[2020-02-15 03:47] VITALS: BP 107/71
[2020-02-15 05:42] LABS: BASOPHILS # (AUTO) 0.03 x10^3/uL (0-0.1); BASOPHILS % (AUTO) 0 % (0-1); EOSINOPHILS # (AUTO) 0.11 x10^3/uL (0-0.4); EOSINOPHILS % (AUTO) 1 % (1-7); LYMPHOCYTES # (AUTO) 2.07 x10^3/uL (1-3.4); LYMPHOCYTES % (AUTO) 21 % (22-44); MD NO; MEAN CORPUSCULAR HEMOGLOBIN 31.1 pg (27.0-34.8); MEAN CORPUSCULAR HGB CONC 34.1 g/dL (32.4-35.8); MEAN CORPUSCULAR VOLUME 91.2 fL (80-100); MEAN PLATELET VOLUME 7.4 fL (7.4-10.4); MONOCYTES # (AUTO) 0.38 x10^3/uL (0.2-0.8); MONOCYTES % (AUTO) 4 % (2-9); NEUTROPHILS # (AUTO) 7.51 x10^3/uL (1.8-6.8); NEUTROPHILS % (AUTO) 75 % (42-75); PLATELET COUNT 454 x10^3/uL (130-400); RED BLOOD COUNT 4.43 x10^6/uL (3.82-5.3); RED CELL DISTRIBUTION WIDTH 11.8 % (9.6-15.2)
[2020-02-15 08:00] VITALS: BP 103/68
[2020-02-15] MEDS: LACTATED RINGERS 1,000 ML IV SCH (08:00)
[2020-02-15] MEDS: NICOTINE 14MG/24 HR PATCH.TD24 TD SCH (08:59)
[2020-02-15] MEDS: POTASSIUM CHLORIDE 20 MEQ in D5%-0.45% NACL 1,000 ML IV SCH (13:21)
[2020-02-15 14:00] VITALS: BP 113/79
[2020-02-15 19:10] VITALS: BP 109/75
[2020-02-16] MEDS: KETOROLAC 30 MG/1 ML IV PRN ×2 (00:43→06:30)
[2020-02-16] MEDS: PIPERACILLIN/TAZO/PMX 3.375GM 50 ML IV SCH ×2 (00:43→06:30)
[2020-02-16 00:54] VITALS: BP 109/70
[2020-02-16 07:48] VITALS: BP 119/82
[2020-02-16] MEDS: NICOTINE 14MG/24 HR PATCH.TD24 TD SCH (09:07)
[2020-02-16] MEDS ORDERED: AMOX1TAB64 PO (09:49)
== END 2020-02-16 10:40 | disposition home or self-care (01) | DRG 580 ==
LOC: ED 13:06 → EDIP 17:04 → 3N 18:10 → 4NE 02-14 17:32 → DCLOUNGE 02-16 10:36
PROVIDERS: ADMIT Internal Medicine; ATTEND Internal Medicine
PROC: 0W960ZZ Drainage of Neck, Open Approach (ICD-10-PCS; principal; 2020-02-13)
PROC: 0J943ZZ Drainage of Right Neck Subcutaneous Tissue and Fascia, Percutaneous Approach (ICD-10-PCS; 2020-02-14)
DX: L02.11 Cutaneous abscess of neck (principal); J36 Peritonsillar abscess; F17.210 Nicotine dependence, cigarettes, uncomplicated; E87.6 Hypokalemia; R47.02 Dysphasia; Z83.3 Family history of diabetes mellitus; Z87.442 Personal history of urinary calculi; Z90.710 Acquired absence of both cervix and uterus; Z20.828 Contact with and (suspected) exposure to other viral communicable diseases
CPT/HCPCS: 36415; 70491; 80048; 82040; 85025; 87635; 88305; 96365; 99285; G0378; J0295; J1885; J2175; J2250; J2405; J2543; J2550; J2704; J3010; J3480; J3490; Q9967; J0330; J2270; J7120